=== PATIENT | male | born 1970 | race Two or more races ===

== ENCOUNTER 2018-12-18 02:36 | Emergency (ER) | payer OTHER ==
[2018-12-18] MEDS ORDERED: LIDOCAINE 2% VISCOUS SOLN 20 ML UDCUP PO ONE ×2 (03:35→08:58)
[2018-12-18] MEDS ORDERED: FAMOTIDINE INJ/PF 20 MG/2 ML SDV IV ONE (03:35)
[2018-12-18] MEDS ORDERED: MAG HYDROX/AL HYDROX/SIMETH SUSP 30 ML UDCUP PO ONE ×2 (03:35→08:58)
[2018-12-18] MEDS ORDERED: METOCLOPRAMIDE HCL ORAL SOLN 10 MG/10 ML UDCUP PO ONE (03:35)
[2018-12-18] MEDS ORDERED: NORMAL SALINE 1000 ML 1,000 ML IV ONE ×3 (03:36→07:22)
--- NOTE | 2018-12-18 03:36 | ER Document Report ---
ED General - General Chief Complaint: Difficulty Swallowing Stated Complaint: VOMITING Time Seen by Provider: 12/18/18 03:26 Notes: 48-year-old male to the emergency department chief complaint of vomiting. Patient states that he is visiting family from [place]. States that his vomiting and had to be seen and was diagnosed with "necrosis of his esophagus". States that he noticed some blood in his vomit today. States that it hurts to swallow. Denies any chest pain. TRAVEL OUTSIDE OF THE [place] IN LAST 30 DAYS: No - HPI Onset: Just prior to arrival Onset/Duration: Gradual, Constant Quality of pain: Achy Severity: Moderate Pain Level: 1 - Related Data Allergies/Adverse Reactions: caffeine Allergy (Intermediate, Verified 12/18/18 04:20) NSAIDS (Non-Steroidal Anti-Inflamma Allergy (Intermediate, Verified 12/18/18 04:20) Past Medical History - General Information source: Patient - Social History Smoking Status: Never Smoker Frequency of alcohol use: None Drug Abuse: None Lives with: Family Family History: Reviewed & Not Pertinent Endocrine Medical History: Reports: Hx Diabetes Mellitus Type 2 Review of Systems - Review of Systems Notes: Constitutional: denies: Chills, Diaphoresis, Fever, Malaise, Weakness EENT: denies: Eye discharge, Blurred vision, Tearing, Double vision, Nose congestion, Nose discharge, Throat swelling, Mouth pain Cardiovascular: denies: Palpitations, Heart racing, Orthopnea, Dyspnea, Chest p ain Respiratory: denies: Cough, Hurts to breathe, Wheezing, Shortness of breath Gastrointestinal: Planing of nausea, vomiting, blood in the vomit. Genitourinary: denies: Burning, Dysuria, Discharge, Frequency, Flank pain, Hematuria Musculoskeletal: denies: Joint pain, Joint swelling, Muscle pain, Muscle stiffness, back pain Hematologic/Lymphatic: denies: Anemia, Easy bleeding, Easy bruising, Blood clots Neurological/Psychological: denies: Confusion, Dementia, Depression, Loss of consciousness Skin: No lesions, no masses, no skin breakdown, no abscesses Physical Exam - Vital signs Vitals: Temp Pulse Resp BP Pulse Ox 98.4 F 141 H 22 H 136/90 H 98 12/18/18 02:42 12/18/18 02:42 12/18/18 02:42 12/18/18 02:42 12/18/18 02:42 Interpretation: Tachycardic - General General appearance: Appears well, Alert - HEENT Head: Normocephalic, Atraumatic Eyes: Normal Pupils: PERRL - Respiratory Respiratory status: No respiratory distress Chest status: Nontender Breath sounds: Normal Chest palpation: Normal - Cardiovascular Rhythm: Tachycardia Heart sounds: Normal auscultation Murmur: No - Abdominal Inspection: Normal Distension: No distension Bowel sounds: Normal Tenderness: Nontender Organomegaly: No organomegaly - Back Back: Normal, Nontender - Extremities General upper extremity: Normal inspection, Nontender, Normal color, Normal ROM, Normal temperature General lower extremity: Normal inspection, Nontender, Normal color, Normal ROM, Normal temperature, Normal weight bearing. No: Keli's sign - Neurological Neuro grossly intact: Yes Cognition: Normal Orientation: AAOx4 [place] Coma Scale Eye Opening: Spontaneous [place] Coma Scale Verbal: Oriented [place] Coma Scale Motor: Obeys Commands [place] Coma Scale Total: 15 Speech: Normal Motor strength normal: LUE, RUE, LLE, RLE Sensory: Normal - Psychological Associated symptoms: Normal affect, Normal mood - Skin Skin Temperature: Warm Skin Moisture: Dry Skin Color: Normal Course - Re-evaluation Re-evalutation: 12/18/18 05:30 Laboratory 12/18/18 12/18/18 12/18/18 03:37 03:37 03:37 WBC 23.7 H RBC 3.97 L Hgb 11.8 L Hct 34.7 L MCV 87 MCH 29.7 MCHC 33.9 RDW 14.8 H Plt Count 723 H Total Counted 100 Seg Neutrophils % Not Reportable Seg Neuts % (Manual) 87 H Band Neutrophils % 2 L Lymphocytes % Not Reportable Lymphocytes % (Manual) 3 L Monocytes % Not Reportable Monocytes % (Manual) 8 Eosinophils % Not Reportable Eosinophils % (Manual) 0 Basophils % Not Reportable Basophils % (Manual) 0 Absolute Neutrophils Not Reportable Abs Neuts (Manual) 21.1 H Absolute Lymphocytes Not Reportable Abs Lymphs (Manual) 0.7 Absolute Monocytes Not Reportable Abs Monocytes (Manual) 1.9 H Absolute Eosinophils Not Reportable Absolute Eos (Manual) 0.0 Absolute Basophils Not Reportable Abs Basophils (Manual) 0.0 Platelet Comment INCREASED Anisocytosis SLIGHT Stomatocytes SLIGHT PT 13.4 INR 0.97 APTT 31.2 VBG pH VBG pCO2 VBG HCO3 VBG Base Excess Sodium 141.8 Potassium 3.4 L Chloride 97 L Carbon Dioxide 28 Anion Gap 17 BUN 21 H Creatinine 1.24 Est GFR ( Amer) > 60 Est GFR (Non-Af Amer) > 60 Glucose 150 H Calcium 9.4 Total Bilirubin 0.7 Direct Bilirubin 0.3 Neonat Total Bilirubin Not Reportable Neonat Direct Bilirubin Not Reportable Neonat Indirect Bili Not Reportable AST 26 ALT 39 Alkaline Phosphatase 84 Troponin I Total Protein 6.9 Albumin 4.2 Lipase 103.0 Serum Alcohol < 10 12/18/18 12/18/18 03:37 03:37 WBC RBC Hgb Hct MCV MCH MCHC RDW Plt Count Total Counted Seg Neutrophils % Seg Neuts % (Manual) Band Neutrophils % Lymphocytes % Lymphocytes % (Manual) Monocytes % Monocytes % (Manual) Eosinophils % Eosinophils % (Manual) Basophils % Basophils % (Manual) Absolute Neutrophils Abs Neuts (Manual) Absolute Lymphocytes Abs Lymphs (Manual) Absolute Monocytes Abs Monocytes (Manual) Absolute Eosinophils Absolute Eos (Manual) Absolute Basophils Abs Basophils (Manual) Platelet Comment Anisocytosis Stomatocytes PT INR APTT VBG pH 7.60 H VBG pCO2 29.6 L VBG HCO3 28.3 VBG Base Excess 7.0 Sodium Potassium Chloride Carbon Dioxide Anion Gap BUN Creatinine Est GFR ( Amer) Est GFR (Non-Af Amer) Glucose Calcium Total Bilirubin Direct Bilirubin Neonat Total Bilirubin Neonat Direct Bilirubin Neonat Indirect Bili AST ALT Alkaline Phosphatase Troponin I < 0.012 Total Protein Albumin Lipase Serum Alcohol Chest X-Ray 12/18/18 03:34 IMPRESSION: No acute cardiopulmonary process copyright 2011 [employer]- All Rights Reserved Patient is actually feeling much better. Slightly alkalotic on his VBG so anticipate that he more likely was having some hyperventilation. Does have a extremely elevated WBC count but could just be an acute phase reaction. I am repeating that at this time. Patient states that he feels much better. He is handling his secretions. He was swallowing. States that he still has some pain but it feels better. If he is able to swallow and tolerate p.o. and his labs are improving I think patient more than likely does not need any further advanced imaging. He more likely needs a repeat endoscopy sooner rather than later. I will give him this follow-up information. 12/18/18 06:18 Patient's repeat CBC is pending. Still getting his second liter of fluid. Ant icipate that his CBC will be really improved. If he is feeling much better, tolerating p.o. and his blood count is improved than likely would be able to be discharged as mentioned above. I have signed the patient over to Dr. Tamayo at this time for review of repeat CBC. If CBC is good then will discharge. If CBC is still elevated and patient still symptomatic then he will reassess patient. - Vital Signs Vital signs: Temp Pulse Resp BP Pulse Ox 98.4 F 141 H 13 122/96 H 100 12/18/18 02:42 12/18/18 02:42 12/18/18 04:45 12/18/18 04:45 12/18/18 04:45 - Laboratory Result Diagrams: 12/18/18 03:37 12/18/18 03:37 Laboratory results interpreted by me: 12/18/18 12/18/18 12/18/18 03:37 03:37 03:37 WBC 23.7 H RBC 3.97 L Hgb 11.8 L Hct 34.7 L RDW 14.8 H Plt Count 723 H Seg Neuts % (Manual) 87 H Band Neutrophils % 2 L Lymphocytes % (Manual) 3 L Abs Neuts (Manual) 21.1 H Abs Monocytes (Manual) 1.9 H VBG pH 7.60 H VBG pCO2 29.6 L Potassium 3.4 L Chloride 97 L BUN 21 H Glucose 150 H - EKG Interpretation by Me EKG shows normal: Intervals, QRS Complexes, ST-T Waves Rate: Tachycardia Discharge - Discharge Clinical Impression: Acute gastritis Qualifiers: Gastritis type: unspecified gastritis Gastritis bleeding: with bleeding Qualified Code(s): K29.01 - Acute gastritis with bleeding Condition: Good Disposition: HOME, SELF-CARE Instructions: Gastritis ([facility]), Upper Gastrointestinal Bleeding ([facility]) Additional Instructions: Please avoid all NSAIDs such as ibuprofen, aspirin, naproxen. You may use the Zofran as needed for vomiting and nausea. Take the medications as prescribed. I am recommending that we add Zantac or Pepcid twice a day in addition to your omeprazole. Your hemoglobin A1c was actually quite good today at 5.7 so your diabetes is much improved. In the event that you develop worsening symptoms or concerns then please return for repeat evaluation. 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 It will be your responsibility to make an appointment. Prescriptions: Ondansetron [Zofran Odt 4 mg Tablet] 1 - 2 tab PO Q4H PRN #15 tab.rapdis PRN Reason: For Nausea/Vomiting Ranitidine HCl [Zantac] 150 mg PO BID 10 Days #20 tablet Sucralfate [Carafate 1 gm Tablet] 1 gm PO TID 7 Days #21 tablet Referrals: KUNAL CORRALES MD [ACTIVE STAFF] - Follow up in 1 week ARNULFO TRACEY MD [ACTIVE STAFF] - Follow up in 1 week
[2018-12-18] MEDS ORDERED: ONDANSETRON HCL INJ/PF 4 MG/2 ML SDV IV ONE ×2 (03:48→08:59)
[2018-12-18 03:55] LABS: VENOUS BLOOD HCO3 28.3 mmol/L (20-32); VENOUS BLOOD PCO2 29.6 mmHg (35-63); VENOUS BLOOD PH 7.6 (7.30-7.42)
--- NOTE | 2018-12-18 04:01 | RADIOLOGY REPORT (SQ) ---
EXAM DESCRIPTION: XR CHEST 1 VIEW COMPLETED DATE/TME: 12/18/2018 03:34 CLINICAL HISTORY: 48 years, Male, chest pain COMPARISON: None. NUMBER OF VIEWS: 1 TECHNIQUE: Portable chest LIMITATIONS: None. FINDINGS: Heart size is normal. Osteopenia. Lungs are clear. No pneumothorax IMPRESSION: No acute cardiopulmonary process copyright 2010 [employer]- All Rights Reserved
[2018-12-18 04:06] LABS: HEMATOCRIT 34.7 % (37.9-51.0); HEMOGLOBIN 11.8 g/dL (13.5-17.0); MEAN CORPUSCULAR HEMOGLOBIN 29.7 pg (27.0-33.4); MEAN CORPUSCULAR HGB CONC 33.9 g/dL (32.0-36.0); MEAN CORPUSCULAR VOLUME 87 fl (80-97); PLATELET COUNT 723 10^3/uL (150-450); RED BLOOD COUNT 3.97 10^6/uL (4.35-5.55); RED CELL DISTRIBUTION WIDTH 14.8 % (11.5-14.0); WHITE BLOOD COUNT 23.7 10^3/uL (4.0-10.5)
[2018-12-18 04:13] LABS: INTERNATIONAL RATION (INR) 0.97; PARTIAL THROMBOPLASTIN TIME 31.2 SEC (23.5-35.8); PROTHROMBIN TIME 13.4 SEC (11.4-15.4)
[2018-12-18 04:18] LABS: ALANINE AMINOTRANSFERASE 39 U/L (21-72); ALBUMIN 4.2 g/dL (3.5-5.0); ALKALINE PHOSPHATASE 84 U/L (38-126); ANION GAP 17 (5-19); ASPARTATE AMINO TRANSFERASE 26 U/L (17-59); BILIRUBIN,DIRECT 0.3 mg/dL (0.0-0.4); BILIRUBIN,TOTAL 0.7 mg/dL (0.2-1.3); BLOOD UREA NITROGEN 21 mg/dL (7-20); CALCIUM 9.4 mg/dL (8.4-10.2); CARBON DIOXIDE 28 mmol/L (22-30); CHLORIDE 97 mmol/L (98-107); GLUCOSE 150 mg/dL (75-110); POTASSIUM 3.4 mmol/L (3.6-5.0); SODIUM 141.8 mmol/L (137-145); TOTAL PROTEIN 6.9 g/dL (6.3-8.2)
[2018-12-18 04:19] LABS: ALCOHOL < 10 mg/dL (NONE DETECTED)
[2018-12-18 04:27] LABS: ABSOLUTE LYMPHOCYTES# (MANUAL) 0.7 10^3/uL (0.5-4.7); ABSOLUTE MONOCYTES # (MANUAL) 1.9 10^3/uL (0.1-1.4); ABSOLUTE NEUTROPHILS# (MANUAL) 21.1 10^3/uL (1.7-8.2); BAND NEUTROPHILS % (MANUAL) 2 % (3-5); BASOPHILS % (MANUAL) 0 % (0-2); EOSINOPHILS % (MANUAL) 0 % (0-6); LYMPHOCYTES % (MANUAL) 3 % (13-45); MONOCYTES % (MANUAL) 8 % (3-13); SEGMENTED NEUTROPHILS % (MAN) 87 % (42-78); TOTAL CELLS COUNTED 100
[2018-12-18 04:28] LABS: ANISOCYTOSIS SLIGHT; PLATELET COMMENT INCREASED; STOMATOCYTES SLIGHT
[2018-12-18 06:35] LABS: HEMATOCRIT 29.6 % (37.9-51.0); HEMOGLOBIN 10.1 g/dL (13.5-17.0); MEAN CORPUSCULAR HGB CONC 34.2 g/dL (32.0-36.0); MEAN CORPUSCULAR VOLUME 88 fl (80-97); PLATELET COUNT 571 10^3/uL (150-450); RED BLOOD COUNT 3.37 10^6/uL (4.35-5.55); RED CELL DISTRIBUTION WIDTH 15.1 % (11.5-14.0); WHITE BLOOD COUNT 20.4 10^3/uL (4.0-10.5)
[2018-12-18 08:17] LABS: APPEARANCE,URINE CLEAR; BILIRUBIN,URINE NEGATIVE (NEGATIVE); COLOR,URINE YELLOW; GLUCOSE, URINE NEGATIVE (NEGATIVE); KETONES,URINE NEGATIVE (NEGATIVE); LEUKOCYTE ESTERASE,URINE NEGATIVE (NEGATIVE); NITRITE,URINE NEGATIVE (NEGATIVE); PROTEIN,URINE 100 mg/dL (NEGATIVE); UROBILINOGEN,URINE NEGATIVE mg/dL (<2.0)
[2018-12-18 08:40] LABS: URINE AMPHETAMINES SCREEN NEGATIVE; URINE BARBITURATES SCREEN NEGATIVE; URINE BENZODIAZEPINES SCREEN NEGATIVE; URINE COCAINE SCREEN NEGATIVE; URINE MARIJUANA (THC) SCREEN NEGATIVE; URINE METHADONE SCREEN NEGATIVE; URINE PHENCYCLIDINE SCREEN NEGATIVE
[2018-12-18] MEDS ORDERED: RINGERS SOLUTION,LACTATED 1,000 ML IV ONE (08:58)
[2018-12-18] MEDS ORDERED: PANTOPRAZOLE SODIUM 40 MG VIAL IV ONE (09:00)
--- NOTE | 2018-12-18 09:03 | ER Document Report ---
Doctor's Note Notes: 12/18/18 09:00 Patient care was turned over to me this morning by Dr. He. I reviewed the patient's history, physical, labs. I talked with the patient. He reports onset yesterday of nausea and vomiting which occurred throughout the day in the evening. It became bilious in nature later in the day and throughout the night. He states that he has an irritation in his upper esophagus area making it painful to swallow. He was given a GI cocktail about just before 4 AM this morning. He states that he noted that the discomfort was better and swallowing was much less painful shortly after the GI cocktail. At this time he is constantly spitting in a bag, due to discomfort in swallowing his saliva. He states he does not have any problem actually swallowing it, it is just painful. Physical exam shows the oropharynx to be unremarkable. The chest is clear. The heart is regular and a little tachycardic at 110. The abdomen has active bowel sounds, is soft, there is no tenderness anywhere in the abdomen to palpate. The patient did have an elevated white blood cell count, after at least 2 L of fluid and a repeat CBC, the white blood cell count did not appreciably decrease. Dr. He had requested CT scanning of the chest abdomen and pelvis if the white blood cell count remained elevated. 12/18/18 12:29 CT scans show thickening of the thoracic esophagus consistent with esophagitis. There is also gastroduodenal inflammation most likely from peptic ulcer disease. There is no tenderness to palpate on the abdomen at this time. The patient's complaint of pain on swallowing is consistent with the findings of esophagitis. 12/18/18 12:35 The patient's stool was heme negative. The leukocytosis was most likely due to the inflammatory process and the stress response from all the vomiting and becoming somewhat dehydrated. After the GI cocktail, patient was actually feeling quite well, other than the discomfort in his upper esophagus when swallowing.
--- NOTE | 2018-12-18 09:50 | RADIOLOGY REPORT (SQ) ---
EXAM DESCRIPTION: CT CHEST WITH COMPLETED DATE/TIME: 12/18/2018 9:33 am REASON FOR STUDY: Bilious vomiting, leukocytosis, difficulty swallow COMPARISON: None. TECHNIQUE: CT scan of the chest performed using helical scanning technique with dynamic intravenous contrast injection. Images reviewed with lung, soft tissue and bone windows. Reconstructed coronal and sagittal MPR and MIP images reviewed. All images stored on PACS. All CT scanners at this facility use dose modulation, iterative reconstruction, and/or weight based d osing when appropriate to reduce radiation dose to as low as reasonably achievable (ALARA). [facility]: Dose Right [facility]: CareDose [facility]: Dose Right [facility]: Teradose 4D [facility]: [employer] CONTRAST TYPE AND DOSE: contrast/concentration: Isovue 350.00 mg/ml; Total Contrast Delivered: 96.0 ml; Total Saline Delivered: 58.2 ml RENAL FUNCTION: GFR > 60. RADIATION DOSE: CT Rad equipment meets quality standard of care and radiation dose reduction techniq ues were employed. CTDIvol: 9.2 - 13.0 mGy. DLP: 1502 mGy-cm. . LIMITATIONS: None. FINDINGS: LUNGS AND PLEURA: No opacities, nodules, masses. No pneumothorax. No effusions. HILAR AND MEDIASTINAL STRUCTURES: Thickening of the thoracic esophagus. HEART AND VASCULAR STRUCTURES: No aneurysm or dissection. No central pulmonary emboli. No pericardi al effusion. HARDWARE: None in the chest. UPPER ABDOMEN: See separate report of the CT of the abdomen. THYROID AND OTHER SOFT TISSUES: No masses. No adenopathy. BONES: No significant finding. OTHER: No other significant finding. IMPRESSION: Esophagitis. TECHNICAL DOCUMENTATION: JOB ID: [id number] Quality ID # [id number]: Final reports with documentation of one or more dose reduction techniques (e.g., Au tomated exposure control, adjustment of the mA and/or kV according to patient size, use of iterative reconstruction technique) 2010 [employer]- All Rights Reserved Reading location - IP/workstation name: [email or web address]
--- NOTE | 2018-12-18 09:53 | RADIOLOGY REPORT (SQ) ---
EXAM DESCRIPTION: CT ABD/PELVIS WITH IV ONLY COMPLETED DATE/TIME: 12/18/2018 9:33 am REASON FOR STUDY: Bilious vomiting, leukocytosis, difficulty swallow COMPARISON: None. TECHNIQUE: CT scan of the abdomen and pelvis performed using helical scanning technique with dynamic intravenous contrast injection. No oral contrast. Images reviewed with lung, soft tissue, and bone windows. Reconstructed coronal and sagittal MPR images reviewed. Delayed images for evaluation of the urinary system also acquired. All images stored on PACS. All CT scanners at this facility use dose modulation, iterative reconstruction, and/or weight based d osing when appropriate to reduce radiation dose to as low as reasonably achievable (ALARA). [facility]: Dose Right [facility]: CareDose [facility]: Dose Right [facility]: Teradose 4D [facility]: [employer] CONTRAST TYPE AND DOSE: See separate report of the same date. RENAL FUNCTION: See separate report. RADIATION DOSE: . LIMITATIONS: None. FINDINGS: LOWER CHEST: Hiatal hernia. See separate report. LIVER: 3 cm hemangioma in the left lobe. SPLEEN: Normal size. No focal lesions. PANCREAS: No masses. No significant calcifications. No adjacent inflammation or peripancreatic fluid collections. Pancreatic duct not dilated. GALLBLADDER: No identified stones by CT criteria. No inflammatory changes to suggest cholecystitis. ADRENAL GLANDS: No significant masses or asymmetry. RIGHT KIDNEY AND URETER: No solid masses. No significant calcifications. No hydronephrosis or hyd roureter. LEFT KIDNEY AND URETER: No solid masses. 4 mm stone lower pole. No hydronephrosis or hydroureter. AORTA AND VESSELS: No aneurysm. No dissection. Renal arteries, SMA, celiac without stenosis. RETROPERITONEUM: No retroperitoneal adenopathy, hemorrhage or masses. BOWEL AND PERITONEAL CAVITY: Inflammation in the gastroduodenal junction. No ascites or free air. APPENDIX: Not visualized. PELVIS: No mass. No free fluid. Normal bladder. ABDOMINAL WALL: No masses. No hernias. BONES: Grade 1 spondylolisthesis and spondylolysis L5-S1. OTHER: No other significant finding. IMPRESSION: 1. Gastroduodenal inflammation most likely from peptic ulcer disease. 2. Nonobstructing stone left kidney. TECHNICAL DOCUMENTATION: JOB ID: [id number] Quality ID # [id number]: Final reports with documentation of one or more dose reduction techniques (e.g., Au tomated exposure control, adjustment of the mA and/or kV according to patient size, use of iterative reconstruction technique) 2010 [employer]- All Rights Reserved Reading location - IP/workstation name: [email or web address]
[2018-12-18 13:10] VITALS: BP 109/74
--- NOTE | 2018-12-18 19:29 | EKG REPORT ---
SEVERITY:- BORDERLINE ECG - SINUS TACHYCARDIA BORDERLINE T ABNORMALITIES, INFERIOR LEADS : Confirmed by: Jeanette King MD 18-Dec-2018 19:28:54
== END 2018-12-18 13:10 | disposition home or self-care (01) ==
LOC: ER 02:36
DX: K29.01 Acute gastritis with bleeding (principal); K20.9 Esophagitis, unspecified; K27.9 Peptic ulcer, site unspecified, unspecified as acute or chronic, without hemorrhage or perforation; R11.2 Nausea with vomiting, unspecified; R13.10 Dysphagia, unspecified; E11.9 Type 2 diabetes mellitus without complications; R00.0 Tachycardia, unspecified
CPT/HCPCS: 93005; 96376; 99285; 96361; 96374; 96375; 36415; 80307 ×2; 83690; 85025; 85610; 85730; 80053; 81001; 84484; 83036; 82803; 71045; 71260; 74177; 93010; J3490; S0164; J2405; J7030; J7120; S0028

== ENCOUNTER 2018-12-24 14:48 | Emergency (ER) | payer MEDICAID, OTHER ==
--- NOTE | 2018-12-24 15:03 | ER Document Report ---
ED Medical Screen (RME) - General Chief Complaint: Abdominal Pain Stated Complaint: SIDE PAIN Time Seen by Provider: 12/24/18 15:02 Mode of Arrival: Wheelchair Information source: Patient Notes: Patient presents emergency department chief complaint of sudden onset right flank, right abdomen and right chest pain. Patient reports the pain comes in waves and is sharp and stabbing. Patient is diaphoretic, very pale. The patient does appear to be in acute distress. Charge nurse was made aware by nursing staff of need for an immediate room. Patient taken straight to room 13. I have greeted and performed a rapid initial assessment of this patient. A comprehensive ED assessment and evaluation of the patient, analysis of test results and completion of the medical decision making process will be conducted by additional ED providers. Dictation of this chart was performed using voice recognition software; therefore, there may be some unintended grammatical errors. TRAVEL OUTSIDE OF THE [place] IN LAST 30 DAYS: No - Related Data Allergies/Adverse Reactions: caffeine Allergy (Intermediate, Verified 12/24/18 14:50) NSAIDS (Non-Steroidal Anti-Inflamma Allergy (Intermediate, Verified 12/24/18 14:50) Past Medical History Endocrine Medical History: Reports: Hx Diabetes Mellitus Type 2 Renal/ Medical History: Denies: Hx Peritoneal Dialysis Physical Exam - Vital signs Vitals: Temp Pulse Resp BP Pulse Ox 97.8 F 106 H 24 H 137/87 H 100 12/24/18 14:55 12/24/18 14:55 12/24/18 14:55 12/24/18 14:55 12/24/18 14:55 Course - Vital Signs Vital signs: Temp Pulse Resp BP Pulse Ox 97.8 F 106 H 24 H 137/87 H 100 12/24/18 14:55 12/24/18 14:55 12/24/18 14:55 12/24/18 14:55 12/24/18 14:55
[2018-12-24] MEDS ORDERED: ONDANSETRON HCL INJ/PF 4 MG/2 ML SDV IV ONE ×2 (15:04→15:21)
[2018-12-24] MEDS ORDERED: NORMAL SALINE 1000 ML 1,000 ML IV ONE ×2 (15:04→15:22)
[2018-12-24] MEDS ORDERED: FENTANYL CITRATE INJ/PF 100 MCG/2 ML AMPUL IV ONE ×2 (15:22→16:02)
[2018-12-24] MEDS ORDERED: OCTREOTIDE ACETATE INJ/PF 100 MCG/1 ML SDV IV ONE (15:22)
[2018-12-24] MEDS ORDERED: PANTOPRAZOLE SODIUM 40 MG VIAL IV ONE (15:23)
[2018-12-24] MEDS ORDERED: OCTREOTIDE ACETATE INJ/PF 100 MCG/1 ML SDV ONE (15:29)
[2018-12-24] MEDS ORDERED: CEFTRIAXONE INJ 1000 MG VIAL IV ONE (15:29)
[2018-12-24] MEDS ORDERED: NORMAL SALINE 250 ML IV PRN ×2 (15:31)
[2018-12-24] MEDS ORDERED: NORMAL SALINE 500 ML with OCTREOTIDE ACETATE 500 MCG IV PRN ×2 (15:31)
[2018-12-24 15:49] LABS: ABSOLUTE BASOPHILS # (AUTO) 0.2 10^3/uL (0.0-0.2); ABSOLUTE EOSINOPHILS # (AUTO) 0.1 10^3/uL (0.0-0.6); ABSOLUTE LYMPHOCYTES (AUTO) 2.6 10^3/uL (0.5-4.7); ABSOLUTE MONOCYTES (AUTO) 1.6 10^3/uL (0.1-1.4); ABSOLUTE NEUT (AUTO) 10.1 10^3/uL (1.7-8.2); BASOPHILS % (AUTO) 1.1 % (0-2); EOSINOPHILS % (AUTO) 0.9 % (0-6); HEMATOCRIT 33.3 % (37.9-51.0); HEMOGLOBIN 11.2 g/dL (13.5-17.0); LYMPHOCYTES % (AUTO) 17.7 % (13-45); MEAN CORPUSCULAR HGB CONC 33.7 g/dL (32.0-36.0); MEAN CORPUSCULAR VOLUME 86 fl (80-97); RED BLOOD COUNT 3.87 10^6/uL (4.35-5.55); RED CELL DISTRIBUTION WIDTH 15.2 % (11.5-14.0); SEGMENTED NEUTROPHILS % (AUTO) 69.3 % (42-78); TOTAL CELLS COUNTED % (AUTO) 100 %; WHITE BLOOD COUNT 14.6 10^3/uL (4.0-10.5)
--- NOTE | 2018-12-24 16:05 | ER Document Report ---
ED General - General Chief Complaint: Abdominal Pain Stated Complaint: SIDE PAIN Time Seen by Provider: 12/24/18 15:02 Mode of Arrival: Wheelchair Information source: Patient, [facility] Records Notes: 48-year-old male with history of esophageal necrosis, peptic ulcer, gastritis presents with complaint of abdominal pain that started just prior to arrival. Patient states that he had acute onset of right upper quadrant and right flank pain. He describes it as a sharp constant pain. Patient denies any associated fever, chills, nausea, vomiting, black or bloody stools, lower abdominal pain, chest pain. Patient reports history of esophageal bleed several years ago in [place]. Patient is pale, diaphoretic and in acute distress. TRAVEL OUTSIDE OF THE [place] IN LAST 30 DAYS: No - HPI Onset: Just prior to arrival Onset/Duration: Sudden Quality of pain: Sharp, Stabbing Severity: Severe Associated symptoms: Sweating. denies: Chest pain, Nonproductive cough, Diarrhea, Fever, Headache, Nausea, Vomiting, Shortness of breath Exacerbated by: Denies Relieved by: Denies Similar symptoms previously: No Recently seen / treated by doctor: Yes - Related Data Allergies/Adverse Reactions: caffeine Allergy (Intermediate, Verified 12/24/18 14:50) NSAIDS (Non-Steroidal Anti-Inflamma Allergy (Intermediate, Verified 12/24/18 14:50) Past Medical History - General Information source: Patient - Social History Smoking Status: Never Smoker Frequency of alcohol use: None Drug Abuse: None Lives with: Family Family History: Reviewed & Not Pertinent Patient has suicidal ideation: No Patient has homicidal ideation: No Endocrine Medical History: Reports: Hx Diabetes Mellitus Type 2 Renal/ Medical History: Denies: Hx Peritoneal Dialysis GI Medical History: Reports: Hx Gastritis - Esophageal ulcer, esophageal necrosis, Other - Upper GIB, esophagitis, Review of Systems - Review of Systems Constitutional: Diaphoresis EENT: denies: Difficulty swallowing Cardiovascular: Palpitations, Lightheaded. denies: Chest pain Respiratory: denies: Cough, Short of breath Gastrointestinal: Abdominal pain. denies: Constipation, Poor appetite, Blood in vomit, Black stools, Rectal bleeding Genitourinary: denies: Dysuria Male Genitourinary: No symptoms reported Musculoskeletal: denies: Back pain Skin: denies: Rash Neurological/Psychological: denies: Weakness, Seizure, Headaches -: Yes All other systems reviewed and negative Physical Exam - Vital signs Vitals: Temp Pulse Resp BP Pulse Ox 97.8 F 106 H 24 H 137/87 H 100 12/24/18 14:55 12/24/18 14:55 12/24/18 14:55 12/24/18 14:55 12/24/18 14:55 - Notes Notes: PHYSICAL EXAMINATION: GENERAL: Pale, diaphoretic, moderate distress HEAD: Atraumatic, normocephalic. EYES: Pupils equal round and reactive to light, extraocular movements intact, sclera anicteric, no conjunctival ENT: Nares patent, oropharynx clear without exudates. Moist mucous membranes. NECK: Normal range of motion, supple without lymphadenopathy LUNGS: Breath sounds clear to auscultation bilaterally and equal. No wheezes rales or rhonchi. HEART: Tachycardic, regular rhythm ABDOMEN: Tenderness with palpation to the right upper quadrant, epigastric region. No guarding, no rebound. No masses appreciated. Musculoskeletal: Normal range of motion, no pitting or edema. No cyanosis. NEUROLOGICAL: Cranial nerves grossly intact. Normal speech, normal gait. Normal sensory, motor exams PSYCH: Anxious SKIN: Pale, diaphoretic. Course - Re-evaluation Re-evalutation: Laboratory 12/24/18 12/24/18 12/24/18 15:10 15:10 15:20 WBC 14.6 H RBC 3.87 L Hgb 11.2 L Hct 33.3 L MCV 86 MCH 29.0 MCHC 33.7 RDW 15.2 H Plt Count 754 H Seg Neutrophils % 69.3 Lymphocytes % 17.7 Monocytes % 11.0 Eosinophils % 0.9 Basophils % 1.1 Absolute Neutrophils 10.1 H Absolute Lymphocytes 2.6 Absolute Monocytes 1.6 H Absolute Eosinophils 0.1 Absolute Basophils 0.2 Sodium 137.6 Potassium 3.4 L Chloride 96 L Carbon Dioxide 27 Anion Gap 15 BUN 17 Creatinine 1.23 Est GFR ( Amer) > 60 Est GFR (Non-Af Amer) > 60 Glucose 156 H Calcium 9.5 Total Bilirubin 0.4 Direct Bilirubin 0.3 Neonat Total Bilirubin Not Reportable Neonat Direct Bilirubin Not Reportable Neonat Indirect Bili Not Reportable AST 18 ALT 21 Alkaline Phosphatase 77 Total Protein 7.2 Albumin 4.2 Lipase 64.2 Blood Type O POSITIVE Antibody Screen NEGATIVE Crossmatch See Detail Abdomen/Pelvis CT 12/24/18 16:11 IMPRESSION: 1. Thickening of the wall of the 1st and 2nd portions of the duodenum with stranding suggesting duodenitis. 2. There is a small amount of free fluid in the abdomen and pelvis. Cannot entirely exclude perforation of a duodenal ulcer. 3. Cholelithiasis. 4. Intrarenal calculi. 5. Small right pleural effusion. Dependent lower lobe atelectasis. Chest X-Ray 12/24/18 16:11 IMPRESSION: NO ACUTE RADIOGRAPHIC FINDING IN THE CHEST. Temp Pulse Resp BP Pulse Ox 98.3 F 91 16 142/103 H 97 12/24/18 16:58 12/24/18 15:55 12/24/18 16:47 12/24/18 16:47 12/24/18 16:47 12/24/18 17:52 48-year-old male presents in moderate distress, diaphoretic, pale. Patient is tachycardic but not hypotensive. He denies any hematemesis, black or bloody stools. Patient appears ill. Exam concerning for peritonitis. Patient trans ferred immediate resuscitation was initiated and 2 large-bore IVs were placed. 2 L of normal saline were initiated. Trauma blood was requested and patient is receiving 2 units of PRBCs. Patient received octreotide, Protonix, ceftriaxone. Patient is exam is significant for extreme tenderness with palpation to the right upper quadrant and epigastric area. Patient has no lower abdominal pain. Stool was positive for blood. Patient received fentanyl, total 200 mg without relief of symptoms. Patient did receive 0.5 mg of Dilaudid and reported a significant improvement of pain. I did speak to our on-call surgeon Dr. Molina who states that he is currently in another perforation case and is concerned that it will be hours before he is able to assess the patient. He does recommend transfer at this time. [facility] was contacted for transfer. I did speak to Dr. Zamudio general surgeon on-call who has accepted the patient. Patient will be transferred to the emergency department there. Via [facility] for concern for duodenal perforation and peritonitis. Patient evaluated upon flight team arrival and is alert, awake and with stable vital signs. 12/25/18 01:27 - Vital Signs Vital signs: Temp Pulse Resp BP Pulse Ox 98.3 F 91 19 126/92 H 98 12/24/18 16:58 12/24/18 15:55 12/24/18 17:31 12/24/18 17:31 12/24/18 17:31 - Laboratory Result Diagrams: 12/24/18 15:10 12/24/18 15:10 Laboratory results interpreted by me: 12/24/18 12/24/18 12/24/18 15:10 15:10 15:20 WBC 14.6 H RBC 3.87 L Hgb 11.2 L Hct 33.3 L RDW 15.2 H Plt Count 754 H Absolute Neutrophils 10.1 H Absolute Monocytes 1.6 H Potassium 3.4 L Chloride 96 L Glucose 156 H Crossmatch See Detail - Diagnostic Test Radiology reviewed: Image reviewed, Reports reviewed Critical Care Note - Critical Care Note Total time excluding time spent on procedures (mins): 40 - Minutes of critical care time spent in direct contact evaluating and reevaluating the patient, treating symptoms, reviewing labs and studies and speaking with family and consultants excluding any procedures Discharge - Discharge Clinical Impression: Perforated bowel, Peptic ulcer disease, Duodenal ulcer perforation Condition: Stable Disposition: COUNTS INCLUDE 234 BEDS AT THE [facility]
[2018-12-24] MEDS ORDERED: CEFTRIAXONE 1 GM/D5W RTU 1 GM/50 ML RTUPB IV ONE (16:07)
[2018-12-24 16:09] LABS: ALANINE AMINOTRANSFERASE 21 U/L (21-72); ALBUMIN 4.2 g/dL (3.5-5.0); ALKALINE PHOSPHATASE 77 U/L (38-126); ANION GAP 15 (5-19); ASPARTATE AMINO TRANSFERASE 18 U/L (17-59); BILIRUBIN,DIRECT 0.3 mg/dL (0.0-0.4); BILIRUBIN,TOTAL 0.4 mg/dL (0.2-1.3); BLOOD UREA NITROGEN 17 mg/dL (7-20); CALCIUM 9.5 mg/dL (8.4-10.2); CARBON DIOXIDE 27 mmol/L (22-30); CHLORIDE 96 mmol/L (98-107); GLUCOSE 156 mg/dL (75-110); LIPASE 64.2 U/L (23-300); SODIUM 137.6 mmol/L (137-145); TOTAL PROTEIN 7.2 g/dL (6.3-8.2)
[2018-12-24 16:10] LABS: PLATELET COUNT 754 10^3/uL (150-450)
[2018-12-24 16:13] LABS: POTASSIUM 3.4 mmol/L (3.6-5.0)
[2018-12-24] MEDS ORDERED: HYDROMORPHONE HCL INJ/PF 2 MG/ML AMPULE IV ONE ×2 (16:33→17:27)
--- NOTE | 2018-12-24 16:35 | RADIOLOGY REPORT (SQ) ---
5/ EXAM DESCRIPTION: CHEST SINGLE VIEW COMPLETED DATE/TIME: 12/24/2018 4:26 pm REASON FOR STUDY: epigastric pain h/o esoph necrosis COMPARISON: 12/18/2018 EXAM PARAMETERS: NUMBER OF VIEWS: One view. TECHNIQUE: Single frontal radiographic view of the chest acquired. RADIATION DOSE: NA LIMITATIONS: None. FINDINGS: LUNGS AND PLEURA: No opacities, masses or pneumothorax. No pleural effusion. MEDIASTINUM AND HILAR STRUCTURES: No masses. Contour normal. HEART AND VASCULAR STRUCTURES: Heart normal in size. Normal vasculature. BONES: No acute findings. HARDWARE: None in the chest. OTHER: No other significant finding. IMPRESSION: NO ACUTE RADIOGRAPHIC FINDING IN THE CHEST. TECHNICAL DOCUMENTATION: JOB ID: [id number] [employer]- All Rights Reserved Reading location - IP/workstation name: [email or web address]
--- NOTE | 2018-12-24 17:17 | RADIOLOGY REPORT (SQ) ---
EXAM DESCRIPTION: CT ABD/PELVIS NO ORAL OR IV COMPLETED DATE/TIME: 12/24/2018 4:54 pm REASON FOR STUDY: concern for perforation h/o ulcer severe epi pain COMPARISON: None. TECHNIQUE: CT scan of the abdomen and pelvis performed without intravenous or oral contrast. Images reviewed with lung, soft tissue, and bone windows. Reconstructed coronal and sagittal MPR images revi ewed. All images stored on PACS. All CT scanners at this facility use dose modulation, iterative reconstruction, and/or weight based d osing when appropriate to reduce radiation dose to as low as reasonably achievable (ALARA). [facility]: Dose Right [facility]: CareDose [facility]: Dose Right [facility]: Teradose 4D [facility]: [employer] RADIATION DOSE: CT Rad equipment meets quality standard of care and radiation dose reduction techniq ues were employed. CTDIvol: 8.5 mGy. DLP: 546 mGy-cm.mGy. LIMITATIONS: None. FINDINGS: LOWER CHEST: Dependent atelectasis in the lower lobes. Minimal pleural effusion on the ri ght. Small hiatal hernia. NON-CONTRASTED LIVER, SPLEEN, ADRENALS: Evaluation limited by lack of IV contrast. No identified sign ificant masses. PANCREAS: No masses. No peripancreatic inflammatory changes. GALLBLADDER: A couple small gallstones are present. RIGHT KIDNEY AND URETER: No suspicious masses. Assessment limited by lack of IV contrast. Tiny nono bstructing intrarenal calculi. No hydronephrosis or hydroureter. LEFT KIDNEY AND URETER: No suspicious masses. Assessment limited by lack of IV contrast. Nonobstruc ting intrarenal calculi. No hydronephrosis or hydroureter. AORTA AND RETROPERITONEUM: No aneurysm. No retroperitoneal masses or adenopathy. BOWEL AND PERITONEAL CAVITY: There is thickening of the duodenum with stranding around the duodenum. There no significant fluid collection. There is no free air. There is a minimal amount of free flu id seen around the liver and a minimal amount of fluid in the mesentery. APPENDIX: Not identified. PELVIS, BLADDER, AND ABDOMINAL WALL:Bladder is normal. There is some free fluid in the pelvis. BONES: No significant findings. OTHER: No other significant finding. IMPRESSION: 1. Thickening of the wall of the 1st and 2nd portions of the duodenum with stranding ochoa ggesting duodenitis. 2. There is a small amount of free fluid in the abdomen and pelvis. Cannot entirely exclude perfora tion of a duodenal ulcer. 3. Cholelithiasis. 4. Intrarenal calculi. 5. Small right pleural effusion. Dependent lower lobe atelectasis. COMMENT: Quality ID # [id number]: Final reports with documentation of one or more dose reduction techniques (e.g., Automated exposure control, adjustment of the mA and/or kV according to patient size, use of iterative reconstruction technique) TECHNICAL DOCUMENTATION: JOB ID: [id number] [employer]- All Rights Reserved Reading location - IP/workstation name: [email or web address]
[2018-12-24] MEDS ORDERED: PIPERACILLIN/TAZOBACTAM 3.375 GM VIAL IV ONE (18:00)
[2018-12-24 18:01] VITALS: BP 126/92
== END 2018-12-24 19:00 | disposition short-term general hospital (02) ==
LOC: ER 14:48
DX: K63.1 Perforation of intestine (nontraumatic) (principal); K26.5 Chronic or unspecified duodenal ulcer with perforation; R10.9 Unspecified abdominal pain; J90 Pleural effusion, not elsewhere classified; R00.0 Tachycardia, unspecified; E11.9 Type 2 diabetes mellitus without complications
CPT/HCPCS: 96376; 99291; 96361; 96375; 96365; 96367; 86900; 86901; 36415; 36430; 86850; 83690; 85025; 80053; 86920; 71045; 74176; P9016; J3010; J1170; J2354; S0164; J0696; J2405; J7030; J2543

== ENCOUNTER 2019-01-15 10:39 | Emergency (ER) | payer OTHER, MEDICAID ==
[2019-01-15 11:25] LABS: ALANINE AMINOTRANSFERASE 7 U/L (21-72); ALKALINE PHOSPHATASE 82 U/L (38-126); ANION GAP 13 (5-19); ASPARTATE AMINO TRANSFERASE 17 U/L (17-59); BILIRUBIN,DIRECT 0.3 mg/dL (0.0-0.4); BILIRUBIN,TOTAL 0.3 mg/dL (0.2-1.3); BLOOD UREA NITROGEN 51 mg/dL (7-20); CALCIUM 9.2 mg/dL (8.4-10.2); CARBON DIOXIDE 24 mmol/L (22-30); CHLORIDE 103 mmol/L (98-107); GLUCOSE 147 mg/dL (75-110); LIPASE 103.2 U/L (23-300); POTASSIUM 3.8 mmol/L (3.6-5.0); SODIUM 139.6 mmol/L (137-145); TOTAL PROTEIN 8.1 g/dL (6.3-8.2)
[2019-01-15] MEDS ORDERED: NORMAL SALINE 1000 ML 1,000 ML IV ONE ×2 (11:26→11:31)
[2019-01-15] MEDS ORDERED: HYDROMORPHONE HCL INJ/PF 2 MG/ML AMPULE IV ONE (11:27)
[2019-01-15] MEDS ORDERED: ONDANSETRON HCL INJ/PF 4 MG/2 ML SDV IV ONE (11:27)
[2019-01-15 11:30] LABS: HEMATOCRIT 25.6 % (37.9-51.0); HEMOGLOBIN 8.3 g/dL (13.5-17.0); MEAN CORPUSCULAR HEMOGLOBIN 27.3 pg (27.0-33.4); MEAN CORPUSCULAR HGB CONC 32.6 g/dL (32.0-36.0); MEAN CORPUSCULAR VOLUME 84 fl (80-97); PLATELET COUNT 671 10^3/uL (150-450); RED BLOOD COUNT 3.05 10^6/uL (4.35-5.55); RED CELL DISTRIBUTION WIDTH 16.2 % (11.5-14.0); WHITE BLOOD COUNT 22.8 10^3/uL (4.0-10.5)
[2019-01-15 11:36] LABS: ABSOLUTE LYMPHOCYTES# (MANUAL) 3.9 10^3/uL (0.5-4.7); ABSOLUTE MONOCYTES # (MANUAL) 0.2 10^3/uL (0.1-1.4); BAND NEUTROPHILS % (MANUAL) 3 % (3-5); BASOPHILS % (MANUAL) 0 % (0-2); EOSINOPHILS % (MANUAL) 2 % (0-6); LYMPHOCYTES % (MANUAL) 17 % (13-45); MONOCYTES % (MANUAL) 1 % (3-13); SEGMENTED NEUTROPHILS % (MAN) 77 % (42-78); TOTAL CELLS COUNTED 100
[2019-01-15 11:38] LABS: ANISOCYTOSIS 1+; PLATELET COMMENT INCREASED; PLATELET LARGE PRESENT; POLYCHROMASIA 1+
[2019-01-15 11:39] LABS: TEAR DROP CELLS SLIGHT
[2019-01-15] MEDS ORDERED: DIPHENHYDRAMINE HCL 50 MG/ML VIAL IV ONE (11:47)
[2019-01-15] MEDS ORDERED: PANTOPRAZOLE SODIUM 40 MG VIAL IV ONE (11:47)
--- NOTE | 2019-01-15 11:47 | ER Document Report ---
Entered by BRITTANIE KEE SCRIBE 01/15/19 1132 Acting as scribe for:SARA BROWN MD ED General - General Chief Complaint: Bloody Stools Stated Complaint: DARK STOOL Time Seen by Provider: 01/15/19 10:58 Notes: Patient is a 48-year-old male with pertinent history of a mini laparotomy presenting to the emergency department complaining of abdominal pain. Patient states that he woke up at 0500 this morning and felt pain, he then had a bowel movement and noticed his stool is dark brown/black. Patient states that he changed his abdominal wound dressing and took his medication, then laid back down. Patient states that after a short period he could not fall asleep and felt pain again, he then had another bowel movement and noticed the same color in his stool. Patient states that he could not lay back down after the second bowel movement and decided to sit in his living room with the fan on. Patient states that upon sitting down he began getting chills and sweats. Patient states that he currently takes Protonix and oxycodone. Patient states that he also experienced vomiting. TRAVEL OUTSIDE OF THE [place] IN LAST 30 DAYS: No - Related Data Allergies/Adverse Reactions: caffeine Allergy (Intermediate, Verified 01/15/19 10:40) NSAIDS (Non-Steroidal Anti-Inflamma Allergy (Intermediate, Verified 01/15/19 10:40) Past Medical History - General Information source: Patient - Social History Smoking Status: Unknown if Ever Smoked Cigarette use (# per day): No Chew tobacco use (# tins/day): No Frequency of alcohol use: None Drug Abuse: None Family History: Reviewed & Not Pertinent Patient has suicidal ideation: No Patient has homicidal ideation: No Endocrine Medical History: Reports: Hx Diabetes Mellitus Type 2 Renal/ Medical History: Reports: Hx Kidney Stones GI Medical History: Reports: Hx Gastritis - Esophageal ulcer, esophageal necrosis, Hx Gastroesophageal Reflux Disease, Hx Ulcer - Perforated duodenal ulcer 12/24/2018, Other - Gallstones Review of Systems - Review of Systems Constitutional: See HPI, Chills, Diaphoresis EENT: No symptoms reported Cardiovascular: No symptoms reported Respiratory: No symptoms reported Gastrointestinal: See HPI, Abdominal pain, Vomiting, Black stools Genitourinary: No symptoms reported Male Genitourinary: No symptoms reported Musculoskeletal: No symptoms reported Skin: No symptoms reported Hematologic/Lymphatic: No symptoms reported Neurological/Psychological: No symptoms reported -: Yes All other systems reviewed and negative Physical Exam - Vital signs Vitals: Temp Pulse Resp BP Pulse Ox 98.4 F 140 H 16 99/76 L 97 01/15/19 10:41 01/15/19 10:41 01/15/19 10:41 01/15/19 10:41 01/15/19 10:41 - Notes Notes: Physical Exam: General: Alert, appears well, dry mouth. HEENT: Normocephalic. Atraumatic. PERRL. Extraocular movements intact. Orophar ynx clear. Neck: Supple. Non-tender. Respiratory: No respiratory distress. Clear and equal breath sounds bilaterally. Cardiovascular: Tachycardic. Regular rhythm. Abdominal: Upper abdomen tenderness to palpation. No distension. Normal Bowel Sounds. Wound is healing nicely, still has an open area at the inferior aspect of the wound. Back: Non-tender. No deformity or step off. RECTAL: Digital rectal exam shows some dark to black streaking in the mucus. This was heme positive. Extremities: Moves all four extremities. Upper extremities: Normal inspection. Normal ROM. Lower extremities: Normal inspection. No edema. Normal ROM. Neurological: Normal cognition. AAOx4. Normal speech. Psychological: Normal affect. Normal Mood. Skin: Warm. Dry. Normal color. Course - Re-evaluation Re-evalutation: 01/15/19 12:02 The patient was given Zofran, then 1 mg of Dilaudid. The Dilaudid provoked severe nausea with multiple episodes of vomiting and dry heaves. It was a bilious-appearing vomitus. Digital rectal exam was done showing a blackish colored mucus that was heme positive. - Vital Signs Vital signs: Temp Pulse Resp BP Pulse Ox 98.4 F 140 H 12 106/79 93 01/15/19 10:41 01/15/19 10:41 01/15/19 13:00 01/15/19 12:02 01/15/19 13:00 - Laboratory Result Diagrams: 01/15/19 10:49 01/15/19 10:49 Laboratory results interpreted by me: 01/15/19 01/15/19 10:49 10:49 WBC 22.8 H RBC 3.05 L Hgb 8.3 L Hct 25.6 L RDW 16.2 H Plt Count 671 H Monocytes % (Manual) 1 L Abs Neuts (Manual) 18.2 H BUN 51 H Creatinine 1.56 H Est GFR ( Amer) 58 L Est GFR (Non-Af Amer) 48 L Glucose 147 H ALT 7 L - Diagnostic Test Radiology reviewed: Image reviewed, Reports reviewed - CT scan of the abdomen pelvis with IV and oral contrast shows inflammatory changes involving the duodenum with thickened wall and indistinct stranding and some fluid in adjacent soft tissues. There is dilated fluid-filled small bowel. Distal small bowel is not dilated with these findings concerning for developing mechanical obstruction. - Consults Dr. Arrington Time consulted: 13:10 Consulted provider: other - Will accept on the surgical floor at [facility]. Critical Care Note - Critical Care Note Total time excluding time spent on procedures (mins): 40 Discharge - Discharge Clinical Impression: Small bowel obstruction, Postoperative abdominal pain, Tachycardia Leukocytosis Qualifiers: Leukocytosis type: unspecified Qualified Code(s): D72.829 - Elevated white blood cell count, unspecified Hypotension Qualifiers: Hypotension type: unspecified hypotension type Qualified Code(s): I95.9 - Hypotension, unspecified Anemia Qualifiers: Anemia type: unspecified type Qualified Code(s): D64.9 - Anemia, unspecified Condition: Good Disposition: [facility] Scribe Attestation: 01/15/19 13:34 I personally performed the services described in the documentation, reviewed and edited the documentation which was dictated to the scribe in my presence, and it accurately records my words and actions. I personally performed the services described in the documentation, reviewed and edited the documentation which was dictated to the scribe in my presence, and it accurately records my words and actions.
[2019-01-15] MEDS ORDERED: MAG HYDROX/AL HYDROX/SIMETH SUSP 30 ML UDCUP PO ONE (12:27)
[2019-01-15] MEDS ORDERED: LIDOCAINE 2% VISCOUS SOLN 20 ML UDCUP PO ONE (12:27)
--- NOTE | 2019-01-15 12:50 | RADIOLOGY REPORT (SQ) ---
EXAM DESCRIPTION: CT ABD/PELVIS WITH IV ORAL COMPLETED DATE/TIME: 01/15/2019 12:27 pm REASON FOR STUDY: perfed duodenal ulcer 12-24-19,sudden onset pain COMPARISON: 12/24/2018 and 12/18/2018. TECHNIQUE: CT scan of the abdomen and pelvis performed using helical scanning technique with dynamic intravenous contrast injection. No oral contrast. Images reviewed with lung, soft tissue, and bone windows. Reconstructed coronal and sagittal MPR images reviewed. Delayed images for evaluation of the urinary system also acquired. All images stored on PACS. All CT scanners at this facility use dose modulation, iterative reconstruction, and/or weight based d osing when appropriate to reduce radiation dose to as low as reasonably achievable (ALARA). [facility]: Dose Right [facility]: CareDose [facility]: Dose Right [facility]: Teradose 4D [facility]: [employer] CONTRAST TYPE AND DOSE: contrast/concentration: Isovue 300.00 mg/ml; Total Contrast Delivered: 94.0 ml; Total Saline Delivered: 47.7 ml RENAL FUNCTION: BUN 51 creatinine 1.56. RADIATION DOSE: CT Rad equipment meets quality standard of care and radiation dose reduction techniq ues were employed. CTDIvol: 9.5 - 13.4 mGy. DLP: 1349 mGy-cm.. LIMITATIONS: None. FINDINGS: LOWER CHEST: No significant findings. No nodules or infiltrates. LIVER: Normal size. Hemangioma in the left lobe. No dilated ducts. SPLEEN: Normal size. No focal lesions. PANCREAS: No masses. No significant calcifications. No adjacent inflammation or peripancreatic fluid collections. Pancreatic duct not dilated. GALLBLADDER: No identified stones by CT criteria. No inflammatory changes to suggest cholecystitis. ADRENAL GLANDS: No significant masses or asymmetry. RIGHT KIDNEY AND URETER: No solid masses. No significant calcifications. No hydronephrosis or hyd roureter. LEFT KIDNEY AND URETER: No solid masses. Nonobstructing calculus in the lower pole No hydronephro sis or hydroureter. AORTA AND VESSELS: No aneurysm. No dissection. Renal arteries, SMA, celiac without stenosis. RETROPERITONEUM: No retroperitoneal adenopathy, hemorrhage or masses. BOWEL AND PERITONEAL CAVITY: Thickening of the wall of the duodenum. Indistinct stranding and some f luid in the adjacent soft tissues. Dilated fluid-filled proximal small bowel. The distal small keanu l is not dilated. No free fluid. APPENDIX: Normal. PELVIS: No mass. No free fluid. Normal bladder. ABDOMINAL WALL: No masses. No hernias. BONES: No significant or acute findings. OTHER: No other significant finding. IMPRESSION: 1. INFLAMMATORY CHANGES INVOLVING THE DUODENUM WITH THICKENED WALL AND INDISTINCT STRANDING AND SOME FLUID IN THE ADJACENT SOFT TISSUES. 2. DILATED FLUID-FILLED SMALL BOWEL. THE DISTAL SMALL BOWEL IS NOT DILATED. FINDING SOMEWHAT CONCER SARAH FOR DEVELOPING MECHANICAL OBSTRUCTION. 3. NONOBSTRUCTING CALYCEAL CALCULUS IN THE LEFT KIDNEY. 4. HEMANGIOMA IN THE LIVER. 5. NO OTHER SIGNIFICANT OR ACUTE FINDING IN THE ABDOMEN OR PELVIS ON CT SCAN WITH IV CONTRAST. TECHNICAL DOCUMENTATION: JOB ID: [id number] Quality ID # [id number]: Final reports with documentation of one or more dose reduction techniques (e.g., Au tomated exposure control, adjustment of the mA and/or kV according to patient size, use of iterative reconstruction technique) 2010 [employer]- All Rights Reserved Reading location - IP/workstation name: [email or web address]
[2019-01-15 15:39] VITALS: BP 107/73
== END 2019-01-15 16:03 | disposition short-term general hospital (02) ==
LOC: ER 10:39
DX: K56.609 Unspecified intestinal obstruction, unspecified as to partial versus complete obstruction (principal); G89.18 Other acute postprocedural pain; D72.829 Elevated white blood cell count, unspecified; R00.0 Tachycardia, unspecified; I95.9 Hypotension, unspecified; D64.9 Anemia, unspecified; R10.9 Unspecified abdominal pain; R11.2 Nausea with vomiting, unspecified; E11.9 Type 2 diabetes mellitus without complications; Z87.442 Personal history of urinary calculi
CPT/HCPCS: 99291; 96361; 96374; 96375; 36415; 83690; 85025; 80053; 74177; J1200; J3490; J1170; S0164; J2405; J7030

== ENCOUNTER 2019-07-24 12:06 | Emergency (ER) | payer OTHER, MEDICAID ==
[2019-07-24] MEDS ORDERED: ONDANSETRON HCL INJ/PF 4 MG/2 ML SDV IV ONE (12:49)
[2019-07-24] MEDS ORDERED: MORPHINE SULFATE 10 MG/ML INJ IV ONE (12:49)
[2019-07-24] MEDS ORDERED: NORMAL SALINE 1000 ML 1,000 ML IV ONE ×2 (12:50→14:40)
--- NOTE | 2019-07-24 12:52 | ER Document Report ---
ED Medical Screen (RME) - General Chief Complaint: Abdominal Pain Stated Complaint: FLANK PAIN Time Seen by Provider: 07/24/19 12:43 Notes: Patient is a 48-year-old male who presents to the emergency department with a chief complaint of mid epigastric pain. It started the other day. Patient has history of a duodenal perforation in the past. He had a repaired. Patient states the pain has spread to his right middle quadrant. Patient vomited, but denies any hematemesis. Denies any hematochezia or melena stools. Currently taking pantoprazole. Exam: Tender mid right abdomen and tenderness at epigastric area. I have greeted and performed a rapid initial assessment of this patient. A comprehensive ED assessment and evaluation of the patient, analysis of test results and completion of medical decision making process will be conducted by an additional ED providers. TRAVEL OUTSIDE OF THE [place] IN LAST 30 DAYS: No - Related Data Allergies/Adverse Reactions: caffeine Allergy (Intermediate, Verified 07/24/19 12:40) NSAIDS (Non-Steroidal Anti-Inflamma Allergy (Intermediate, Verified 07/24/19 12:40) Past Medical History - Social History Chew tobacco use (# tins/day): No Frequency of alcohol use: None Drug Abuse: None Endocrine Medical History: Reports: Hx Diabetes Mellitus Type 2 Renal/ Medical History: Reports: Hx Kidney Stones. Denies: Hx Peritoneal Dialysis GI Medical History: Reports: Hx Gastritis - Esophageal ulcer, esophageal necrosis, Hx Gastroesophageal Reflux Disease, Hx Ulcer - Perforated duodenal ulcer 12/24/2018 Physical Exam - Vital signs Vitals: Temp Pulse Resp BP Pulse Ox 97.9 F 109 H 22 H 121/88 H 100 07/24/19 12:12 07/24/19 12:12 07/24/19 12:12 07/24/19 12:12 07/24/19 12:12 Course - Vital Signs Vital signs: Temp Pulse Resp BP Pulse Ox 97.9 F 109 H 22 H 121/88 H 100 07/24/19 12:12 07/24/19 12:12 07/24/19 12:12 07/24/19 12:12 07/24/19 12:12
[2019-07-24 13:31] LABS: ABSOLUTE BASOPHILS # (AUTO) 0.1 10^3/uL (0.0-0.2); ABSOLUTE EOSINOPHILS # (AUTO) 0.1 10^3/uL (0.0-0.6); ABSOLUTE LYMPHOCYTES (AUTO) 1.9 10^3/uL (0.5-4.7); ABSOLUTE MONOCYTES (AUTO) 0.9 10^3/uL (0.1-1.4); ABSOLUTE NEUT (AUTO) 9.1 10^3/uL (1.7-8.2); BASOPHILS % (AUTO) 0.7 % (0-2); HEMATOCRIT 30.8 % (37.9-51.0); HEMOGLOBIN 10.1 g/dL (13.5-17.0); LYMPHOCYTES % (AUTO) 15.6 % (13-45); MEAN CORPUSCULAR HEMOGLOBIN 26.3 pg (27.0-33.4); MEAN CORPUSCULAR HGB CONC 32.9 g/dL (32.0-36.0); MEAN CORPUSCULAR VOLUME 80 fl (80-97); MONOCYTES % (AUTO) 7.2 % (3-13); PLATELET COUNT 467 10^3/uL (150-450); RED BLOOD COUNT 3.85 10^6/uL (4.35-5.55); RED CELL DISTRIBUTION WIDTH 18.4 % (11.5-14.0); SEGMENTED NEUTROPHILS % (AUTO) 75.5 % (42-78); TOTAL CELLS COUNTED % (AUTO) 100 %
[2019-07-24 13:47] LABS: ALBUMIN 4.6 g/dL (3.5-5.0); ALKALINE PHOSPHATASE 67 U/L (38-126); ANION GAP 12 (5-19); ASPARTATE AMINO TRANSFERASE 30 U/L (17-59); BILIRUBIN,DIRECT 0.3 mg/dL (0.0-0.4); BILIRUBIN,TOTAL 0.4 mg/dL (0.2-1.3); BLOOD UREA NITROGEN 22 mg/dL (7-20); CALCIUM 9.5 mg/dL (8.4-10.2); CARBON DIOXIDE 27 mmol/L (22-30); CHLORIDE 100 mmol/L (98-107); GLUCOSE 124 mg/dL (75-110); POTASSIUM 4.2 mmol/L (3.6-5.0); TOTAL PROTEIN 7.9 g/dL (6.3-8.2)
--- NOTE | 2019-07-24 13:52 | ER Document Report ---
ED GI/ - General Chief Complaint: Abdominal Pain Stated Complaint: FLANK PAIN Time Seen by Provider: 07/24/19 12:43 Information source: Patient Notes: Patient presents with a 2-1/2-week history of epigastric pain. Patient states that pain will radiate over to the right upper quadrant to the right flank area. Patient denies any urinary symptoms, fever or diarrhea. Patient states that the pain became constant over the past 5 days. Patient does report nausea and vomiting x2 episodes today. Patient has a history of a repaired perforated duodenal ulcer that was performed in December of last year. Patient denies any blood in stool. TRAVEL OUTSIDE OF THE [place] IN LAST 30 DAYS: No - HPI Patient complains to provider of: Abdominal pain Onset: Other Timing/Duration: Persistent Quality of pain: Sharp - 2-1/2 weeks Pain Level: 5 Location: Epigastric Associated symptoms: Nausea, Vomiting. denies: Blood in emesis, Blood in stool, Constipation, Diarrhea, Loss of appetite, Urinary hesitancy, Urinary frequency, Urinary retention, Urinary urgency Exacerbated by: Movement Relieved by: Denies Similar symptoms previously: Yes Recently seen / treated by doctor: No - Related Data Allergies/Adverse Reactions: caffeine Allergy (Intermediate, Verified 07/24/19 12:40) NSAIDS (Non-Steroidal Anti-Inflamma Allergy (Intermediate, Verified 07/24/19 12:40) Past Medical History - General Information source: Patient - Social History Smoking Status: Former Smoker Chew tobacco use (# tins/day): No Frequency of alcohol use: None Drug Abuse: None Occupation: None Family History: Reviewed & Not Pertinent Patient has suicidal ideation: No Patient has homicidal ideation: No Endocrine Medical History: Reports: Hx Diabetes Mellitus Type 2 Renal/ Medical History: Reports: Hx Kidney Stones. Denies: Hx Peritoneal Dialysis GI Medical History: Reports: Hx Gastritis - Esophageal ulcer, esophageal necrosis, Hx Gastroesophageal Reflux Disease, Hx Ulcer - Perforated duodenal ulcer 12/24/2018 Past Surgical History: Reports: Hx Bowel Surgery - Duodenal ulcer perforation Review of Systems - Review of Systems Constitutional: No symptoms reported. denies: Fever, Recent illness EENT: No symptoms reported Cardiovascular: No symptoms reported. denies: Chest pain Respiratory: No symptoms reported. denies: Cough, Short of breath Gastrointestinal: Abdominal pain, Nausea, Vomiting. denies: Diarrhea, Constipation, Black stools, Rectal bleeding Genitourinary: No symptoms reported Male Genitourinary: No symptoms reported Musculoskeletal: No symptoms reported. denies: Back pain Skin: No symptoms reported Hematologic/Lymphatic: No symptoms reported Neurological/Psychological: No symptoms reported Physical Exam - Vital signs Vitals: Temp Pulse Resp BP Pulse Ox 97.9 F 109 H 22 H 121/88 H 100 07/24/19 12:12 07/24/19 12:12 07/24/19 12:12 07/24/19 12:12 07/24/19 12:12 - General General appearance: Appears well, Alert In distress: None - HEENT Head: Normocephalic, Atraumatic Eyes: Normal Conjunctiva: Normal Nasal: Normal Mouth/Lips: Normal Mucous membranes: Normal Pharynx: Normal. No: Erythema, Exudate Neck: Normal, Supple. No: Lymphadenopathy - Respiratory Respiratory status: No respiratory distress Chest status: Nontender Breath sounds: Normal. No: Rales, Rhonchi, Stridor, Wheezing Chest palpation: Normal - Cardiovascular Rhythm: Regular Heart sounds: S1 appreciated, S2 appreciated Murmur: No - Abdominal Inspection: Normal Distension: No distension Bowel sounds: Normal Tenderness: Tender - Epigastric, Guarding Organomegaly: No organomegaly - Back Back: Normal, Nontender. No: CVA tenderness - Extremities General upper extremity: Normal inspection, Nontender, Normal ROM General lower extremity: Normal inspection, Nontender, Normal ROM - Neurological Neuro grossly intact: Yes Cognition: Normal [place] Coma Scale Eye Opening: Spontaneous [place] Coma Scale Verbal: Oriented [place] Coma Scale Motor: Obeys Commands [place] Coma Scale Total: 15 - Psychological Associated symptoms: Normal affect, Normal mood - Skin Skin Temperature: Warm Skin Moisture: Dry Skin Color: Normal Course - Re-evaluation Re-evalutation: 07/24/19 17:16 Reviewed results of patient's CT scan which shows findings worrisome for recurrent or persistent perforation/ulceration of the duodenum. Call was placed to our general surgeon Dr. Mayes. As the patient has had recent surgical repair at [facility] he is recommending consultation with surgery there and if they are unable to manage patient's case advises calling him back. Call then placed to [facility] for consultation with surgery. Images have been uploaded to [employer] per the escrow secretary. 07/24/19 17:40 Dr. Guadalupe consulted with Dr. Mckinnon who is on-call for general surgery at [facility]. Dr. Mckinnon agrees except patient ER to ER transfer at this time. Patient is agreeable with this plan of care at this time. 07/24/19 17:55 Hemoccult performed which tested positive, no overt blood noted. States that he did take pantoprazole around noon today. Will give a dose of IV as well at this time. 07/24/19 19:11 Patient resting comfortably, transfer team is here at this time. Patient stable for transfer. - Vital Signs Vital signs: Temp Pulse Resp BP Pulse Ox 98.6 F 109 H 20 107/88 H 100 07/24/19 19:00 07/24/19 12:12 07/24/19 19:00 07/24/19 19:00 07/24/19 19:01 - Laboratory Result Diagrams: 07/24/19 13:10 07/24/19 13:10 Laboratory results interpreted by me: 07/24/19 07/24/19 13:10 13:10 WBC 12.0 H RBC 3.85 L Hgb 10.1 L Hct 30.8 L MCH 26.3 L RDW 18.4 H Plt Count 467 H Absolute Neuts (auto) 9.1 H BUN 22 H Creatinine 1.54 H Est GFR ( Amer) 59 L Est GFR (MDRD) Non-Af 48 L Glucose 124 H 07/24/19 18:07 Labs- Entire Visit 07/24/19 07/24/19 07/24/19 13:10 13:10 17:49 WBC 12.0 H RBC 3.85 L Hgb 10.1 L Hct 30.8 L MCV 80 MCH 26.3 L MCHC 32.9 RDW 18.4 H Plt Count 467 H Lymph % (Auto) 15.6 [place] % (Auto) 7.2 Eos % (Auto) 1.0 Baso % (Auto) 0.7 Absolute Neuts (auto) 9.1 H Absolute Lymphs (auto) 1.9 Absolute Monos (auto) 0.9 Absolute Eos (auto) 0.1 Absolute Basos (auto) 0.1 Seg Neutrophils % 75.5 Sodium 139.1 Potassium 4.2 Chloride 100 Carbon Dioxide 27 Anion Gap 12 BUN 22 H Creatinine 1.54 H Est GFR ( Amer) 59 L Est GFR (MDRD) Non-Af 48 L Glucose 124 H Calcium 9.5 Total Bilirubin 0.4 Direct Bilirubin 0.3 Neonat Total Bilirubin Not Reportable Neonat Direct Bilirubin Not Reportable Neonat Indirect Bili Not Reportable AST 30 ALT 27 Alkaline Phosphatase 67 Total Protein 7.9 Albumin 4.6 Lipase 272.0 POC Stool Occult Blood POSITIVE - Diagnostic Test Radiology reviewed: Reports reviewed Discharge - Discharge Clinical Impression: Duodenal perforation Abdominal pain Qualifiers: Abdominal location: epigastric Qualified Code(s): R10.13 - Epigastric pain Condition: Fair Disposition: [facility] [place]
[2019-07-24] MEDS ORDERED: FENTANYL CITRATE INJ/PF 100 MCG/2 ML AMPUL IV ONE (16:15)
--- NOTE | 2019-07-24 17:06 | RADIOLOGY REPORT (SQ) ---
EXAM DESCRIPTION: CT ABD/PELVIS WITH IV ORAL COMPLETED DATE/TIME: 07/24/2019 3:55 pm REASON FOR STUDY: abdominal pain; hx of duodenal perforation COMPARISON: 01/15/2019 TECHNIQUE: CT scan of the abdomen and pelvis performed using helical scanning technique with dynamic intravenous contrast injection. No oral contrast. Images reviewed with lung, soft tissue, and bone windows. Reconstructed coronal and sagittal MPR images reviewed. Delayed images for evaluation of the urinary system also acquired. All images stored on PACS. All CT scanners at this facility use dose modulation, iterative reconstruction, and/or weight based d osing when appropriate to reduce radiation dose to as low as reasonably achievable (ALARA). [facility]: Dose Right [facility]: CareDose [facility]: Dose Right [facility]: Teradose 4D [facility]: Fatsoma CONTRAST TYPE AND DOSE: contrast/concentration: Isovue 350.00 mg/ml; Total Contrast Delivered: 94.0 ml; Total Saline Delivered: 71.0 ml RENAL FUNCTION: None required. The patient is less than 50 years old. RADIATION DOSE: CT Rad equipment meets quality standard of care and radiation dose reduction techniq ues were employed. CTDIvol: 11.3 - 11.3 mGy. DLP: 1301 mGy-cm.. LIMITATIONS: None. FINDINGS: LOWER CHEST: No significant findings. No nodules or infiltrates. LIVER: Normal size. No masses. Incidental hemangioma of the left lobe. No dilated ducts. SPLEEN: Normal size. No focal lesions. PANCREAS: No masses. No significant calcifications. No adjacent inflammation or peripancreatic fluid collections. Pancreatic duct not dilated. GALLBLADDER: No identified stones by CT criteria. No inflammatory changes to suggest cholecystitis. ADRENAL GLANDS: No significant masses or asymmetry. RIGHT KIDNEY AND URETER: No solid masses. No significant calcifications. No hydronephrosis or hyd roureter. LEFT KIDNEY AND URETER: No solid masses. No significant calcifications. No hydronephrosis or hydr oureter. AORTA AND VESSELS: No aneurysm. No dissection. Renal arteries, SMA, celiac without stenosis. RETROPERITONEUM: No retroperitoneal adenopathy, hemorrhage or masses. BOWEL AND PERITONEAL CAVITY: The gastric mucosa is diffusely thickened. There is fluid stranding abo ut the descending portion of the duodenum with a tiny focus of extraluminal air present posteriorly ( series 2, image 35). The small bowel and proximal colon are diffusely fluid-filled. APPENDIX: Normal. PELVIS: No mass. No free fluid. Normal bladder. ABDOMINAL WALL: No masses. No hernias. BONES: No significant or acute findings. OTHER: No other significant finding. IMPRESSION: 1. There is fluid stranding about the descending portion of the duodenum with a tiny foc us of extraluminal air present posteriorly (series 2, image 35). Findings are similar to prior exami nations and concerning for persistent or recurrent perforation/ulceration of the duodenum. There is no overt ascites or pneumoperitoneum. 2. Diffuse thickening of the gastric mucosa. Given history of duodenal perforation consider evaluat ion for gastric hypersecretion syndromes including Jayashree-Moon. TECHNICAL DOCUMENTATION: JOB ID: [id number] Quality ID # [id number]: Final reports with documentation of one or more dose reduction techniques (e.g., Au tomated exposure control, adjustment of the mA and/or kV according to patient size, use of iterative reconstruction technique) 2010 [employer]- All Rights Reserved Reading location - IP/workstation name: [email or web address]
[2019-07-24] MEDS ORDERED: PANTOPRAZOLE SODIUM 40 MG VIAL IV ONE (17:53)
[2019-07-24] MEDS ORDERED: HYDROMORPHONE HCL INJ/PF 2 MG/ML AMPULE IV ONE (17:54)
[2019-07-24 19:07] VITALS: BP 107/88
== END 2019-07-24 19:15 | disposition short-term general hospital (02) ==
LOC: ER 12:06
DX: K26.5 Chronic or unspecified duodenal ulcer with perforation (principal); R10.13 Epigastric pain; R10.11 Right upper quadrant pain; R11.2 Nausea with vomiting, unspecified; Z87.891 Personal history of nicotine dependence; E11.9 Type 2 diabetes mellitus without complications
CPT/HCPCS: 99285; 96361; 96374; 96375; 36415; 83690; 85025; 80053; 74177; J3010; J2270; J1170; C9113; J2405; J7030